=== PATIENT | female | born 1945 | race Caucasian/White ===

== ENCOUNTER 2019-02-28 14:46 | Emergency (ER) | payer MEDICARE, OTHER ==
[~2019-02-28] VITALS: Ht 162.6 cm; Wt 57.7 kg
[2019-02-28 15:03] VITALS: Ht 162.6 cm; Wt 57.7 kg
[2019-02-28] MEDS ORDERED: LASIX40 MG PO (15:05)
[2019-02-28] MEDS ORDERED: BENICAR20 MG PO (15:07)
[2019-02-28] MEDS ORDERED: K-TAB10 MEQ PO (15:07)
[2019-02-28] MEDS ORDERED: METOPROLOL TART50 MG PO (15:08)
[2019-02-28] MEDS ORDERED: DETROL LA4 MG PO (15:08)
[2019-02-28] MEDS ORDERED: OMEPRAZOLE20 M1 PO (15:09)
[2019-02-28 16:10] LABS: APPEARANCE CLEAR (CLEAR); BILIRUBIN NEGATIVE (NEGATIVE); COLOR YELLOW (YELLOW); GLUCOSE NEGATIVE (NEGATIVE); KETONE NEGATIVE (NEGATIVE); NITRITE NEGATIVE (NEGATIVE); PROTEIN NEGATIVE (NEGATIVE); UROBILINOGEN NORMAL (NORMAL)
[2019-02-28 16:13] LABS: BACTERIA FEW /hpf (NEGATIVE); EPITHELIAL CELLS 0-5 /hpf (0-5); RED CELLS - URINE OCC /hpf (0-5); WHITE CELLS - URINE OCC /hpf (NEGATIVE)
[2019-02-28 16:29] LABS: BASOPHILS 0.1 % (0-2); EOSINOPHILS 0.1 % (0-7); HEMATOCRIT 40.9 % (36.0-48.0); HEMOGLOBIN 13.7 g/dL (12-16); IMMATURE GRANULOCYTES 0.2 % (0-5); LYMPHOCYTES 6.2 % (15-50); MCH 29.5 pg (26.0-34.0); MCHC 33.5 g/dL (31.0-37.0); MCV 88.1 fL (80.0-100.0); MONOCYTES 2.6 % (2-11); NEUTROPHILS 90.8 % (40-80); PLATELET COUNT 251 10x3/uL (130-400); RBC 4.64 10x6/uL (4.00-5.40); RDW 12.7 % (11.5-14.5); WBC 11.8 10x3/uL (4.8-10.8)
[2019-02-28 16:54] LABS: ANION GAP 16.3 mmol/L (8-16); CALCIUM 9.1 mg/dL (8.5-10.1); CARBON DIOXIDE 22.3 mmol/L (21.0-32.0); POTASSIUM - SERUM 3.6 mmol/L (3.5-5.1)
[2019-02-28 17:00] LABS: ALBUMIN 3.7 g/dL (3.4-5.0); BILIRUBIN - TOTAL 0.66 mg/dL (0.2-1.3); PROTEIN - SERUM 7.9 g/dL (6.4-8.2)
[2019-02-28] MEDS ORDERED: LEVAQUIN750 MG PO (18:50)
[2019-02-28] MEDS ORDERED: FLAGYL500 MG PO (18:50)
[2019-02-28] MEDS ORDERED: TYLENOL W/CODEI1 TAB PO (18:54)
[2019-02-28] MEDS ORDERED: ZOFRAN ODT4 MG/UDTAB PO (18:55)
[2019-02-28 19:16] VITALS: BP 161/94
== END 2019-02-28 19:16 | disposition home or self-care (01) ==
LOC: D.ER 14:46
PROVIDERS: Family Medicine
DX: K57.92 Diverticulitis of intestine, part unspecified, without perforation or abscess without bleeding (principal); I10 Essential (primary) hypertension